=== PATIENT | male | born 1965 | race Caucasian/White ===

== ENCOUNTER → 2019-09-12 08:15 | Outpatient (CLI) | payer OTHER, SELFPAY ==
--- NOTE | 2019-09-12 08:23 | DI.MRI.S_ITS ---
PROCEDURE: MR KNEE RT WO CON INDICATIONS: Strain of unspecified muscles and tendons TECHNIQUE: Noncontrast sagittal PD fast spin echo and T2 fast spin echo with fat saturation, sagittal 3-D FLASH with fat saturation; coronal T1 spin echo and PD fast spin echo with fat saturation, and axial PD fast spin echo with fat saturation through the knee. COMPARISON: None. FINDINGS: Image quality: Excellent. Menisci: The posterior horn lateral meniscus is truncated. There appears to be a bucket-handle tear of the posterior meniscus which is displaced anteriorly. There are also complex tears of the body and anterior horn of the lateral meniscus with a 4 mm meniscal cyst. The medial meniscus appears intact. There is mild intrasubstance degeneration in the posterior horn of the medial meniscus. Cruciate ligaments: The anterior and posterior cruciate ligaments appear intact. Medial structures: The medial collateral ligament appears intact. The semimembranosus tendon insertions and meniscocapsular junction appear intact. Visualized portions of the pes anserinus tendons appear normal. No abnormal bursal fluid. Lateral structures: The lateral collateral ligament and the biceps femoris tendon appear intact. The popliteus tendon appears normal. The arcuate ligament irregular suspicious for chronic injury. Iliotibial band appears normal. Anterior structures: The quadriceps and patellar tendons appear intact. Patellar alignment is normal. No femoral trochlear dysplasia or ventral trochlear prominence. No edema in the infrapatellar fat pad. Bones and cartilage: No bone marrow contusions or fractures. 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 Full-thickness cartilage fissures are noted in patella. Joint space: There is moderate knee joint fluid. No Escalante's cyst. Normal appearing synovial plicae are incidentally noted. IMPRESSION: 1. The posterior horn of the lateral meniscus is truncated, which is likely caused by a large bucket-handle tear and is displaced anteriorly. Complex tears are also present of the body and anterior horn of the lateral meniscus. 2. Tricompartmental cartilage fibrillation. Full-thickness cartilage fissures are noted in patella. 3. [id number] knee joint effusion. Dictated by: Katie Chau M.D. on 09/12/2019 at 10:30 Approved by: Katie Chau M.D. on 09/12/2019 at 18:37
== END ==
PROVIDERS: PCP Family Medicine; Referring Provider Family Medicine; Visit Provider Family Medicine
DX: S86.911A Strain of unspecified muscle(s) and tendon(s) at lower leg level, right leg, initial encounter (principal); S83.271A Complex tear of lateral meniscus, current injury, right knee, initial encounter; M25.461 Effusion, right knee
CPT/HCPCS: 73721